=== PATIENT | male | born 1935 ===

== ENCOUNTER 2023-05-28 19:30 | Inpatient (IN) | payer OTHER ==
[~2023-05-28] VITALS: Ht 160 cm; Wt 54.4 kg
[~2023-05-28 19:30] MED LIST: ECOTRIN81 MG; FOLIC ACID1 MG; PERCOCET 5/3251 TAB PO; SERTRALINE HCL50 MG PO; SINEMET 25-1001 EACH PO; TAMS0.4C; TAMSULOSIN HCL0.4 MG PO; VASOTEC20 M1; ZANTAC150 M3; ZOLOFT50 MG
[2023-05-28] MEDS ORDERED: BACLOFEN10 MG PO (19:49)
[2023-05-28] MEDS ORDERED: FERROUS SU220 MG/52 PO (19:49)
--- NOTE | 2023-05-28 19:50 | NUR ---
PTE ES REFERIDO POR DRA CABRERA POR RETENCION URINARIA.
[2023-05-28 21:37] LABS: MEAN CELL VOLUME 93.6 fL (80.0-100.00); MEAN CORPUSCULAR HGB CONC 32.4 g/dl (32.0-36.0); PLATELET COUNT 178 K/uL (150-450); RED CELL DISTRIBUTION WIDTH 12.9 % (11.5-14.5)
[2023-05-28 21:38] LABS: MEAN CORPUSCULAR HEMOGLOBIN 30.4 pg (27.00-32.0)
[2023-05-28 21:39] LABS: HEMOGLOBIN 7.3 g/dL (13-16.00)
[2023-05-28 21:40] LABS: HEMATOCRIT 22.5 % (39.0-48.0)
[2023-05-28 21:41] LABS: PH,URINE 5.5 (5.0-8.0); URINE APPEARANCE Clear; URINE BILIRRUBIN Negative (NEGATIVE); URINE BLOOD Moderate; URINE COLOR Yellow; URINE GLUCOSE Negative (NEGATIVE); URINE LEUKOCYTE Moderate; URINE NITRATE Negative; URINE PROTEIN Negative (NEGATIVE); URINE UROBILINOGEN 0.2 E.U./dl
[2023-05-28 21:42] LABS: URINE BACTERIA 4065.7 uL (0.0-1933); URINE EPITHELIAL CELLS 4.9 uL (0.0-38.8); URINE RBC 618.4 uL (0.0-20.8)
[2023-05-28 21:51] LABS: CALCIUM 8.6 mg/dL (8.5-10.1); CREATININE SERUM 1.08 mg/dL (0.70-1.30); GFR 64.52; POTASSIUM 3.94 mEq/L (3.5-5.1)
--- NOTE | 2023-05-28 21:58 | NUR ---
PACIENTE EVALUADO DR. GAMING QUIEN ORDENA TRATAMIENTO. SE ORIENTA PACIENTE SOBRE TRATAMIENTO. SE CANALIZA PACIENTE Y SE VINOD MUESTRAS DE LABORATORIO BAJO MEDIDAS ASEPTICAS. SE INSERTA PHILLIPS CATETER #10 BAJO MEDIDAS AEPTICAS Y ESTERILES. SE REALIA CUIDADO PERINEAL. SE MANTIENE PACIENTE EN ESPERA DE RESULTADOS DE LABORATORIO.
[2023-05-29 14:12] LABS: ob POSITIVE (NEGATIVE)
== END 2023-05-30 08:17 | disposition expired | DRG 690 ==
LOC: ER 19:30 → MEDI 05-29 00:19
PROVIDERS: ADMIT Internal Medicine; ATTEND Internal Medicine
PROC: 30233N1 Transfusion of Nonautologous Red Blood Cells into Peripheral Vein, Percutaneous Approach (ICD-10-PCS; principal; 2023-05-29)
PROC: 4A12X4Z Monitoring of Cardiac Electrical Activity, External Approach (ICD-10-PCS; 2023-05-29)
DX: N39.0 Urinary tract infection, site not specified (principal); N17.9 Acute kidney failure, unspecified; E86.0 Dehydration; L89.329 Pressure ulcer of left buttock, unspecified stage; L89.319 Pressure ulcer of right buttock, unspecified stage; R33.9 Retention of urine, unspecified; D64.9 Anemia, unspecified; N13.9 Obstructive and reflux uropathy, unspecified; Z20.822 Contact with and (suspected) exposure to COVID-19; I69.991 Dysphagia following unspecified cerebrovascular disease; R13.10 Dysphagia, unspecified; G20.A1 Parkinson's disease without dyskinesia, without mention of fluctuations; F02.80 Dementia in other diseases classified elsewhere, unspecified severity, without behavioral disturbance, psychotic disturbance, mood disturbance, and anxiety; Z74.01 Bed confinement status